=== PATIENT | male | born 1950 | race Hispanic/Latino ===

== ENCOUNTER → 2019-02-04 | Day surgery (SDC) | payer OTHER ==
[2019-01-31 12:23] LABS: BASOPHILS % 0.5 % (0.0-1.0); EOSINOPHILS # (AUTO) 0.2 (0.0-0.4); EOSINOPHILS % 2.4 % (0.0-6.0); HEMATOCRIT 47.1 % (38.2-49.6); HEMOGLOBIN 16.1 g/dL (14.0-18.0); LYMPHOCYTES # (AUTO) 1.4 (1.0-3.2); LYMPHOCYTES % 16.7 % (18.0-39.1); MEAN CORPUSCULAR HEMOGLOBIN 28.6 pg (28-32); MEAN CORPUSCULAR HGB CONC 34.2 g/dL (31-35); MEAN CORPUSCULAR VOLUME 83.7 fL (81-99); MONOCYTES # (AUTO) 0.7 (0.2-0.8); MONOCYTES % 7.9 % (4.4-11.3); NEUTROPHILS % 72.1 % (38.7-80.0); PLATELET COUNT 179 x10e3/uL (140-360); RED BLOOD COUNT 5.63 x10e6/uL (4.3-5.7); RED CELL DISTRIBUTION WIDTH 13.9 % (11.7-14.4)
[2019-01-31 12:40] LABS: ALANINE AMINOTRANSFERASE 23 IU/L (0-55); ALBUMIN 4.3 g/dL (3.5-5.0); ALBUMIN/GLOBULIN RATIO 1.4 (0.8-2.0); ALKALINE PHOSPHATASE 58 IU/L (40-150); ANION GAP 16.1 mmol/L (8-16); BLOOD UREA NITROGEN 13 mg/dL (7-26); BUN/CREATININE RATIO 13 (6-25); CALCIUM 9.6 mg/dL (8.4-10.2); CARBON DIOXIDE 24 mmol/L (22-29); CHLORIDE 102 mmol/L (98-107); EST GLOMERULAR FILTRATION RATE > 60 ML/MIN (60-); GLUCOSE 166 mg/dL (74-118); POTASSIUM 4.1 mmol/L (3.5-5.1); SODIUM 138 mmol/L (136-145)
[~2019-02-04] VITALS: Ht 167.6 cm; Wt 92.1 kg
[2019-02-04] VITALS (14 sets, daily range): BP systolic 95–159; BP diastolic 57–90
[~2019-02-04] MED LIST: ALPRAZOLAM 0.5 MG TAB ONE; AMLODIPINE BESY10 MG PO; BIVALRIUDIN 250 MG/VIAL VIAL IV ONE; BYSTOLIC5 MG PO; CIPRO500 MG PO; CLONIDINE HCL0.2 MG PO; CLOPIDOGREL75 MG PO; DIOVAN80 MG PO; DIPHENHYDRAMINE HCL 25 MG CAP ONE; FENTANYL CITRATE/PF 100MCG/2 ML INJ ONE; GLIMEPIRIDE1 MG PO; HEPARIN SOD/SOD CHLORIDE 2,000 ML ONE; IOPAMIDOL 370 MG/ML 200 ML INFUS..BTL INJ ONE; JANUMET XR 50-1 EAC1 PO; LIDOCAINE HCL 2% LOCAL 20 ML VIAL ONE; METFORMIN HCL1000 MG PO; MIDAZOLAM HCL 2 MG/2 ML VIAL ONE; NIACIN500 M2 PO; PRAVASTATIN SOD20 MG PO; RANEXA500 MG PO; SODIUM CHLORIDE 0.9% 1000ML 1,000 ML ONE; SODIUM CHLORIDE 0.9% 50ML 50 ML ONE; TRULICITY0.75 MG/0. SQ; ULTRAM 50MG50 MG PO; VERAPAMIL HCL 2.5 MG/ML 2 ML VIAL ONE; ZETIA10 MG PO; [UNRECOGNIZED DRUG - OTHER] PO
--- NOTE | 2019-02-04 12:33 | NUR ---
1233 Bedside report received from Aaron WONG. Alert oriented and appropriate, PERRLA, respirations even and unlabored to room air. Pulses x4 extremities equal and strong. Pedal pulses PT/DP X4. Cap fill brisk < 3 sec. Angiomax infusing till 1pm and 3pm TR band air can be reduced. no gross issues pain pallor pressure or dysrhythmia. Skin warm and dry integrity appears D/I IV 20g to left hand and iv infusing at 100ccchr. presents healthy w/o s/s of infiltration or complaint. Abdomen soft and supple. pt offered toileting, denies need to urinate or defecate. No personal affects with patient. Family daughter at bedside. Pt and family verbalizes understanding of POC. Currently w/o complaint of pain or need. May be dc at 5pm lucille/indu
--- NOTE | 2019-02-04 15:00 | NUR ---
1500RADIAL Compression removal: Initial Cuff volume 13 cc 1500 -2cc Removed No hematoma/bleeding noted with normal neurovascular function. 1515 -5cc Removed No hematoma/ bleeding noted with normal neurovascular function. 1530 -5cc Removed No hematoma/bleeding noted with normal neurovascular function. Air removal completed. Stasis achieved sterile 2x2,Tegaderm, Coban dressing No hematoma, bleeding noted with normal neurovascular function. Wrist splint in place. Pt instructed on POC. Ds/Rn
--- NOTE | 2019-02-04 17:00 | NUR ---
1700 Pt meets DC criteria. Rt Trband assessed for s/s of complication and presence of hematoma. Skin warm, dry, no discolor, and pulses present. IV removed from left hand. Distal tip appears intact. VS WNL. Pt denies pain, sob, or need at this time. Family at XXXXX. Review of discharge paperwork and follow up instructions. verbalized understanding. Pt to wheelchair and transported to front of hospital. Transferred to private vehicle under own strength w/o incident with DC paperwork in hand. -ds/rn
--- NOTE | 2019-02-05 07:03 | Operative Report ---
DATE OF PROCEDURE: 02/04/2019 SURGEON: Alvarez Valdez MD PROCEDURE: Cardiac cath. INDICATION: Coronary artery disease, abnormal stress test. PROCEDURES PERFORMED: 1. Left heart catheterization, selective coronary angiography. 2. PTCA, atherectomy, and stent placement to the left anterior descending artery. 3. Deployment of right wrist TR band. COMPLICATIONS: None. RECOMMENDATIONS: Dual antiplatelet therapy for life, staged intervention of circumflex and obtuse marginal branch with bifurcating stent. DESCRIPTION OF PROCEDURE: Access obtained in the right radial artery. A 6-[place] sheath was placed. Angiomax was administered for anticoagulation. Coronary angiography demonstrated completely occluded right coronary artery with grade 4 collaterals from the left coronary system filling the right posterior descending artery. Left main had mild disease. Left anterior descending artery proximal 90% type C stenosis, heavily calcified. Remaining vessel had diffuse 70% to 99% 1.5 mm vessel, ostial diagonal 90% stenosis, obtuse marginal branch had 50 and 80% stenosis, circumflex 90% stenosis. LV end-diastolic pressure of 12. No gradient across the aortic valve on pullback. A decision was made to intervene on the left anterior descending artery. The left main was cannulated using an XB3.5, 6-[place] guiding catheter. A ViperWire was advanced across the lesion for support. Orbital atherectomy using a CSI device was performed, following which a single 3 x 12 mm Synergy drug-eluting stent was deployed at 22 atmospheres. Excellent end result, less than 10% restenosis, CARLTON-3 flow. No complications. Right wrist TR band applied. The patient discharged home on the same day. Alvarez Valdez MD KSB/MODL /[id number]
== END | disposition home or self-care (01) ==
LOC: CATH LAB 10:29
PROVIDERS: ATTEND Internal Medicine Interventional Cardiology
DX: I25.118 Atherosclerotic heart disease of native coronary artery with other forms of angina pectoris (principal); R94.39 Abnormal result of other cardiovascular function study; I87.2 Venous insufficiency (chronic) (peripheral); E11.9 Type 2 diabetes mellitus without complications; E78.5 Hyperlipidemia, unspecified; I10 Essential (primary) hypertension; Z01.812 Encounter for preprocedural laboratory examination; Z79.02 Long term (current) use of antithrombotics/antiplatelets; Z79.84 Long term (current) use of oral hypoglycemic drugs; Z68.35 Body mass index [BMI] 35.0-35.9, adult
CPT/HCPCS: 93458; C9602; 36415; 80053; 85025; 92933; 99152; 99153; C1724; C1769; C1874; C1887; J0583; J2001; J2250; J3010; J7030; Q9967